=== PATIENT | male | born 1975 | race Caucasian/White ===

== ENCOUNTER 2018-06-20 16:00 | Emergency (ER) | payer OTHER ==
[~2018-06-20] VITALS: Ht 167.6 cm; Wt 74.1 kg
[2018-06-20 16:05] VITALS: Ht 167.6 cm; Wt 74.1 kg
[2018-06-20 16:58] VITALS: BP 117/91
== END 2018-06-20 16:58 | disposition home or self-care (01) ==
LOC: ED 16:00
DX: B35.3 Tinea pedis (principal)